=== PATIENT | female | born 1980 | race Caucasian/White ===

== ENCOUNTER 2024-04-14 13:56 | Inpatient (IN) ==
[2024-04-14 15:08] LABS: BASOPHILS # (AUTO) 0.1 10^3/uL (0.0-0.1); BASOPHILS % (AUTO) 0.5 %; EOSINOPHILS # (AUTO) 0.2 10^3/uL (0.0-0.7); EOSINOPHILS % (AUTO) 1.1 %; HCT - HEMATOCRIT 43.7 % (37.0-47.0); HGB - HEMOGLOBIN 14.5 g/dL (12.0-16.0); LYMPHOCYTES # (AUTO) 2.1 10^3/uL (1.5-3.5); LYMPHOCYTES % (AUTO) 16.1 %; MEAN CORPUSCULAR HEMOGLOBIN 30.1 pg (27.0-31.0); MEAN CORPUSCULAR HGB CONC 33.2 g/dL (32.0-36.0); MEAN CORPUSCULAR VOLUME 90.9 fL (81.0-99.0); MONOCYTES # (AUTO) 0.7 10^3/uL (0.0-1.0); MONOCYTES % (AUTO) 5.5 %; NEUTROPHILS # (AUTO) 10.1 10^3/uL (1.5-6.6); NEUTROPHILS % (AUTO) 76.4 %; PLT - PLATELET COUNT 366 10^3/uL (130-450); RED BLOOD COUNT 4.81 10^6/uL (4.20-5.40); RED CELL DISTRIBUTION WIDTH 12.8 % (12.0-15.0); WHITE BLOOD COUNT 13.2 x10^3/uL (4.8-10.8)
[2024-04-14 15:13] LABS: BILIRUBIN,URINE MODERATE (NEGATIVE); CLARITY,URINE HAZY (CLEAR); GLUCOSE, URINE (UA) NEGATIVE (NEGATIVE); KETONES,URINE (UA) 15 mg/dL (NEGATIVE); LEUKOCYTE ESTERASE, URINE TRACE (NEGATIVE); NITRITE,URINE NEGATIVE (NEGATIVE); OCCULT BLOOD,URINE TRACE-INTA (NEGATIVE); PROTEIN,URINE TRACE mg/dL (NEGATIVE); UROBILINOGEN,URINE 4 E.U./dL (NORMAL)
[2024-04-14 15:29] LABS: RBC,URINE 0-5 /HPF (0-5); SQUAMOUS EPITHELIAL CELL,UR MOD Squamous (<= Few)
[2024-04-14 15:30] LABS: BACTERIA,URINE Rare /HPF (None Seen); MUCUS,URINE Moderate Strands
[2024-04-14 15:35] LABS: ALBUMIN 4.4 g/dL (3.2-5.5); ALBUMIN/GLOBULIN RATIO 1.1 (1.0-2.2); BILIRUBIN,TOTAL 0.7 mg/dL (0.2-1.0); CALCIUM 9.7 mg/dL (8.5-10.3); CREATININE 0.8 mg/dL (0.6-1.3); POTASSIUM 3.6 mmol/L (3.5-4.5); TOTAL PROTEIN 8.4 g/dL (6.4-8.9)
--- NOTE | 2024-04-14 16:23 | ED Physician Documentation ---
PD HPI ABD PAIN Stated complaint Stated Complaint: ABD PX, NAUSEA, LETHARGIC Chief complaint Chief Complaint: Abd Pain Additional information Additional information: 43-year-old female history of tubal ligation and cholecystectomy presents emergency department for generalized abdominal pain. She says there is no pain localized to 1 area she has been having chills nausea no vomiting. This been ongoing now for the last 3 to 4 days originally she was worried about possible constipation but she called her friend who is an RN who informed her that she needs to go the emergency department for further evaluation. Last bowel movement was on Friday she took Pepto-Bismol with little to no relief. She says that she has a very low suspicion for as her has a vasectomy and she has a tubal ligation. Meds/Allgy Allergies Allergies Allergy/AdvReac Type Severity Reaction Status Date / Time acetaminophen (From Vicodin) Allergy Intermediate Nausea Verified 04/14/24 14:45 hydrocodone (From Vicodin) Allergy Intermediate Nausea Verified 04/14/24 14:45 latex Allergy Mild Rash Verified 04/14/24 14:45 [facility] Medical History Medical History (Updated 04/14/24 @ 18:34 by Tray Echavarria MD) Hiatal hernia Gall bladder pain Social History Social History Smoking Status: Unknown if ever smoked Relationship: Do you feel safe in your home environment?: Yes Suffered physical, verbal, emotional, or financial abuse?: No POLST Patient has POLST: No Exam Exam Vital Signs Temperature 35.9 C L 04/14/24 18:51 Pulse Rate 86 04/14/24 18:51 Respiratory Rate 15 04/14/24 18:51 Blood Pressure 129/83 04/14/24 18:51 O2 Saturation 98 04/14/24 18:51 Constitutional normal general appearance, no apparent distress and abnormal body habitus (obese) HENMT normocephalic Eyes PERRL Neck/C-Spine visual inspection normal Lymph no lymphadenopathy noted Chest inspection of chest normal Respiratory breath sounds equal bilaterally Cardiovascular normal heart rate noted Gastrointestinal abdomen normal to inspection, abdomen soft to palpation, tender to palpation (moderate) (generalized adomial tenderness), normoactive bowel sounds and no ascites Genitourinary no CVA tenderness Skin skin color normal and no rash Results Vitals Vitals: Vital Signs - 24 hr 04/14/24 14:14 04/14/24 16:15 04/14/24 16:29 Temperature 36.6 C Temperature Source Temporal Artery Scan Pulse Rate 105 H 91 H Respiratory Rate 18 16 Blood Pressure 151/88 H 160/95 H O2 Saturation 99 97 O2 Source Room air Room air Pain Intensity 10 9 9 04/14/24 18:51 Temperature 35.9 C L Temperature Source Temporal Artery Scan Pulse Rate 86 Respiratory Rate 15 Blood Pressure 129/83 O2 Saturation 98 O2 Source Room air Pain Intensity 7 Oxygen O2 Source Room air Labs Labs: Laboratory Tests 04/14/24 04/14/24 14:30 15:00 WBC 13.2 H RBC 4.81 Hgb 14.5 Hct 43.7 MCV 90.9 MCH 30.1 MCHC 33.2 RDW 12.8 Plt Count 366 MPV 10.0 Neut # (Auto) 10.1 H Lymph # (Auto) 2.1 [place] # (Auto) 0.7 Eos # (Auto) 0.2 Baso # (Auto) 0.1 Absolute Nucleated RBC 0.00 Nucleated RBC % 0.0 Sodium 137 Potassium 3.6 Chloride 99 L Carbon Dioxide 29 Anion Gap 9.0 BUN 10 Creatinine 0.8 Estimated GFR (MDRD) 79 L Glucose 142 H Calcium 9.7 Total Bilirubin 0.7 AST 16 ALT 15 Alkaline Phosphatase 104 Total Protein 8.4 Albumin 4.4 Globulin 4.0 Albumin/Globulin Ratio 1.1 Lipase 13 Serum HCG, Qual NEGATIVE Urine Color DARK YELLOW Urine Clarity HAZY Urine pH 6.0 Ur Specific [place] 1.025 Urine Protein TRACE Urine Glucose (UA) NEGATIVE Urine Ketones 15 H Urine Occult Blood TRACE-INTA Urine Nitrite NEGATIVE Urine Bilirubin MODERATE H Urine Urobilinogen 4 H Ur Leukocyte Esterase TRACE H Urine RBC 0-5 Urine WBC 6-10 H Ur Squamous Epith Cells MOD Squamous H Urine Bacteria Rare Urine Mucus Moderate Strands Ur Microscopic Review INDICATED Urine Culture Comments NOT INDICATED Urine HCG, Qual NEGATIVE Rads (name of study) CT abdomen pelvis with: Relevant Findings:: Final report received PD Medical Decision Making ED course ED course: 43-year-old female presents emergency department for generalized abdominal pain and discomfort. She says this has been ongoing now for the last 3 to 4 days feels very fatigue and low energy with chills. Labs are complete for further evaluation and she does have mildly elevated white count 13.2 no anemia no electrolyte abnormalities negative hCG. Urinalysis has trace amount of leukocytes but she has no UTI symptoms so I will not treat this. CT was complete for further evaluation and radiologist called me to inform me that patient appears to have an acute appendicitis with a 3.5 cm abscess and appendix dilated at 10 mm. Given these findings I am significantly less suspicious for possible ovarian torsion or PID, radiologist also notes this. I informed Dr. Echavarria with [facility] who has agreed to accept the patient to his care he will perform surgery tonight patient was started on Zosyn prior to surgery. Pain is well-controlled with fentanyl and nausea controlled with Zofran. Patient was updated of the findings and is agreeable to pursue surgery at this time. Discharge Plan Discharge Patient Disposition: ED Transfer to [facility] Interventions: ED Admission Assessment Last Done: 04/14/24 19:20
[2024-04-14] MEDS: ONDANSETRON 4 MG/2 ML VIAL IVP STA (16:29)
[2024-04-14] MEDS: KETOROLAC 30 MG/ML VIAL IVP STA (16:29)
[2024-04-14] MEDS ORDERED: iohexoL-300 100 ML VIAL ONE (16:42)
[2024-04-14] MEDS: iohexoL-300 100 ML VIAL IVP ONE (17:12)
--- NOTE | 2024-04-14 17:33 | CT Report ---
PROCEDURE: CT Abdomen/Pelvis W INDICATIONS: generalized abd pain CONTRAST: 100ML [id number] TECHNIQUE: After the administration of intravenous contrast, a CT scan of the abdomen and pelvis was performed. Images were recorded and evaluated at appropriate window settings. Reformats: coronal and sagittal. F or radiation dose reduction, the following was used: automated exposure control, adjustment of mA and /or kV according to patient size. COMPARISON: None. FINDINGS: Image quality: Diagnostic. Lower chest: Unremarkable. Liver: No solid mass. Gallbladder: Status post cholecystectomy. Biliary tree: No intrahepatic or extrahepatic dilation, accounting for age. Spleen: No splenomegaly. Pancreas: No pancreatic ductal dilation. Adrenals: No adrenal nodule. Kidneys and ureters: No hydronephrosis. No renal cystic lesion which requires follow up. No solid mas s. Stomach, bowel and peritoneum: No gastric or small bowel dilation. No abnormal wall thickening. No pa thologic free fluid. Inflammatory changes are seen in the right lower quadrant adjacent to the cecal tip extending to the right adnexa. Dilated appendix is best seen on coronal view and measures up to 1 0 mm in diameter. No appendicolith is seen. Lymph nodes: No central or retroperitoneal adenopathy. Vessels: No infrarenal aortic aneurysm. Patent portal vein. PELVIS Reproductive organs: 3.5 cm right ovarian cyst adjacent to the area of right lower quadrant inflammat ion. Left ovary is unremarkable. A clip is seen in the left adnexa. There is also a nonspecific surgi mikayla clip within the left lower quadrant. Bladder: No abnormal wall thickening, accounting for underdistention. Pelvic lymph nodes: No pelvic adenopathy by size criteria. Bones: No aggressive osseous abnormality. Other: No significant ventral or inguinal hernia. IMPRESSION: Findings suspicious for acute appendicitis with periappendiceal fat stranding and dilated appendix me asuring up to 10 mm. No appendicolith is seen. Inflammatory changes extend to the right adnexal regio n where there is a 3.5 cm right ovarian cyst. Ovarian torsion or pelvic inflammatory disease are felt to be less likely given the appearance of the appendix. Findings were discussed with the referring provider, Mary Donovan NP by telephone on 04/14/2024 at 5: 30 PM. Reviewed by: Eduard Chappell MD on 04/14/2024 5:32 PM PDT Approved by: Eduard Chappell MD on 04/14/2024 5:32 PM PDT Station ID: [id number]
[2024-04-14 18:08] LABS: HCG,QUALITATIVE BLOOD NEGATIVE
[2024-04-14] MEDS: PIPERACILLIN/TAZOBACTAM 3.375 GM in SODIUM CHLORIDE 0.9% MINIBAG 100 ML IV STA (18:08)
--- NOTE | 2024-04-14 18:19 | ANESTHESIA PROCEDURE NOTE ---
Pre-Anesthesia VS, & Labs Diagnosis Surgical Diagnosis:: acute appendicitis Procedure Procedure: laparoscopic appendectomy Vitals Vital Signs: Temp Pulse Resp BP Pulse Ox 36.6 C 91 H 16 160/95 H 97 04/14/24 14:14 04/14/24 16:15 04/14/24 16:15 04/14/24 16:15 04/14/24 16:15 Is Patient ?: No Lab Results Current Lab Results: Laboratory Tests 04/14/24 15:00: WBC 13.2 H, RBC 4.81, Hgb 14.5, Hct 43.7, MCV 90.9, MCH 30.1, MCHC 33.2, RDW 12.8, Plt Count 366, MPV 10.0, Neut # (Auto) 10.1 H, Lymph # (Auto) 2.1, [place] # (Auto) 0.7, Eos # (Auto) 0.2, Baso # (Auto) 0.1, Absolute Nucleated RBC 0.00, Nucleated RBC % 0.0, Sodium 137, Potassium 3.6, Chloride 99 L, Carbon Dioxide 29, Anion Gap 9.0, BUN 10, Creatinine 0.8, Estimated GFR (MDRD) 79 L, Glucose 142 H, Calcium 9.7, Total Bilirubin 0.7, AST 16, ALT 15, Alkaline Phosphatase 104, Total Protein 8.4, Albumin 4.4, Globulin 4.0, Albumin/Globulin Ratio 1.1, Lipase 13, Serum HCG, Qual NEGATIVE 04/14/24 15:00 04/14/24 15:00 Meds/Allgy Allergies Allergies Allergy/AdvReac Type Severity Reaction Status Date / Time acetaminophen (From Vicodin) Allergy Intermediate Nausea Verified 04/14/24 14:45 hydrocodone (From Vicodin) Allergy Intermediate Nausea Verified 04/14/24 14:45 latex Allergy Mild Rash Verified 04/14/24 14:45 [facility] Medical History Medical History (Updated 04/14/24 @ 14:24 by Celina Lu RN) Hiatal hernia Gall bladder pain Social History Social History Relationship: Do you feel safe in your home environment?: Yes Suffered physical, verbal, emotional, or financial abuse?: No POLST Patient has POLST: No Anesthesia Exam (Expanded) Exam General: Alert and Oriented x3 Dental: WNL Mouth Opening: Greater than 4 Fingerbreadths Neck Mobility: Normal Mallampati classification: I Thyromental Distance: greater than 6 cm Respiratory: Lungs clear Cardiovascular: Regular rate Exam Exam Vital Signs Temperature 36.6 C 04/14/24 14:14 Pulse Rate 91 H 04/14/24 16:15 Respiratory Rate 16 04/14/24 16:15 Blood Pressure 160/95 H 04/14/24 16:15 O2 Saturation 97 04/14/24 16:15 Plan Plan Anesthesia Type: General Consent for Procedure(s) Verified and Reviewed: Yes Code Status: Attempt Resuscitation ASA Classification ASA classification: 2-Mild systemic disease Is this case an emergency?: Yes
[2024-04-14] MEDS ORDERED: DEXAMETHASONE 4 MG/ML VIAL ONE (18:34)
[2024-04-14] MEDS ORDERED: PROPOFOL 200 MG/20 ML VIAL IVP ONE (18:34)
[2024-04-14] MEDS ORDERED: ROCURONIUM 50 MG/5 ML VIAL ONE (18:34)
--- NOTE | 2024-04-14 18:36 | CONSULTATION NOTE ---
Referring Provider Name of Referring Provider:: Fannie Donovan Consult Date: 04/14/24 Chief Complaint Chief Complaint Chief Complaint: Right lower quadrant pain History of Present Illness Admitted From Admitted From:: Not admitted-outpatient History Obtained From Records Reviewed: Yes History obtained from: Patient and chart Exam Limitations: None History of Present Illness HPI Comment/Other: Patient has had a 4-day history of abdominal pain which was generalized initially with a slight preponderance to the right lower quadrant. She had a mild improvement of the pain today and then when it worsened she agreed to come to the emergency department. Her mother told her that she thought it might be appendicitis as her mother had had appendicitis in the past. The patient is not hungry. Motion makes the pain worse. She is also having some irritation whenever she urinates. She has had multiple abdominal surgeries including cholecystectomy, tubal ligation, and I believe an ovarian cystectomy. The patient states that when she was examined on admission palpation of the right lower quadrant was the most painful spot. Meds/Allgy Allergies Allergies Allergy/AdvReac Type Severity Reaction Status Date / Time acetaminophen (From Vicodin) Allergy Intermediate Nausea Verified 04/14/24 14:45 hydrocodone (From Vicodin) Allergy Intermediate Nausea Verified 04/14/24 14:45 latex Allergy Mild Rash Verified 04/14/24 14:45 PFSH Medical History Medical History (Updated 04/14/24 @ 18:34 by Tray Echavarria MD) Hiatal hernia Gall bladder pain Social History Social History Relationship: Do you feel safe in your home environment?: Yes Suffered physical, verbal, emotional, or financial abuse?: No POLST Patient has POLST: No POLST Status: Full Code Results Lab Results Lab results reviewed: Yes 04/14/24 15:00 04/14/24 15:00 Other Lab Results: Lab Results x24hrs 04/14/24 04/14/24 Range/Units 15:00 14:30 WBC 13.2 H (4.8-10.8) x10^3/uL RBC 4.81 (4.20-5.40) 10^6/uL Hgb 14.5 (12.0-16.0) g/dL Hct 43.7 (37.0-47.0) % MCV 90.9 (81.0-99.0) fL MCH 30.1 (27.0-31.0) pg MCHC 33.2 (32.0-36.0) g/dL RDW 12.8 (12.0-15.0) % Plt Count 366 (130-450) 10^3/uL MPV 10.0 (7.9-10.8) fL Neut # (Auto) 10.1 H (1.5-6.6) 10^3/uL Lymph # (Auto) 2.1 (1.5-3.5) 10^3/uL [place] # (Auto) 0.7 (0.0-1.0) 10^3/uL Eos # (Auto) 0.2 (0.0-0.7) 10^3/uL Baso # (Auto) 0.1 (0.0-0.1) 10^3/uL Absolute Nucleated RBC 0.00 x10^3/uL Nucleated RBC % 0.0 /100WBC Sodium 137 (135-145) mmol/L Potassium 3.6 (3.5-4.5) mmol/L Chloride 99 L (101-111) mmol/L Carbon Dioxide 29 (21-32) mmol/L Anion Gap 9.0 (6-13) BUN 10 (6-20) mg/dL Creatinine 0.8 (0.6-1.3) mg/dL Estimated GFR (MDRD) 79 L (>89) Glucose 142 H (74-104) mg/dL Calcium 9.7 (8.5-10.3) mg/dL Total Bilirubin 0.7 (0.2-1.0) mg/dL AST 16 (10-42) IU/L ALT 15 (10-60) IU/L Alkaline Phosphatase 104 (42-121) IU/L Total Protein 8.4 (6.4-8.9) g/dL Albumin 4.4 (3.2-5.5) g/dL Globulin 4.0 (2.1-4.2) g/dL Albumin/Globulin Ratio 1.1 (1.0-2.2) Lipase 13 (11-82) U/L Serum HCG, Qual NEGATIVE Urine Color DARK YELLOW Urine Clarity HAZY (CLEAR) Urine pH 6.0 (5.0-7.5) PH Ur Specific [place] 1.025 (1.002-1.030) Urine Protein TRACE (NEGATIVE) mg/dL Urine Glucose (UA) NEGATIVE (NEGATIVE) mg/dL Urine Ketones 15 H (NEGATIVE) mg/dL Urine Occult Blood TRACE-INTA (NEGATIVE) Urine Nitrite NEGATIVE (NEGATIVE) Urine Bilirubin MODERATE H (NEGATIVE) Urine Urobilinogen 4 H (NORMAL) E.U./dL Ur Leukocyte Esterase TRACE H (NEGATIVE) Urine RBC 0-5 (0-5) /HPF Urine WBC 6-10 H (0-5) /HPF Ur Squamous Epith Cells MOD Squamous H (<= Few) Urine Bacteria Rare (None Seen) /HPF Urine Mucus Moderate Strands Ur Microscopic Review INDICATED Urine Culture Comments NOT INDICATED Diagnostic Imaging Results Diagnostic Imaging Results: positive Final report reviewed, See rad report and Read contemporaneously Review of Systems Status of ROS: 10 or more systems reviewed and unremarkable except as noted in history and below Exam Exam Vital Signs Temperature 36.6 C 04/14/24 14:14 Pulse Rate 91 H 04/14/24 16:15 Respiratory Rate 16 04/14/24 16:15 Blood Pressure 160/95 H 04/14/24 16:15 O2 Saturation 97 04/14/24 16:15 Constitutional normal general appearance HENMT normocephalic, head/scalp atraumatic, hearing grossly normal bilaterally, external ears normal and oral mucous membranes abnormal (Slightly dry) Eyes conjunctivae normal and no scleral icterus Neck/C-Spine trachea midline Respiratory breath sounds equal bilaterally, normal respiratory effort, clear to auscultation bilaterally, no wheezes, no rales, no retractions and no use of accessory muscles Cardiovascular normal heart rate noted (Slightly tachycardic) Gastrointestinal nondistended, abnormal bowel sounds noted (Decreased) and no masses Maximal tenderness at McBurney's point. Extremities normal to inspection, normal to palpation and no tenderness Neurology no movement abnormality noted, no sensory deficits noted and GCS normal Skin skin color normal, no rash, no lesions, no ecchymosis noted, no wounds, no lacerations, skin turgor normal, no jaundice, no petechiae, no mottling and nails normal Conclusion/Plan Problem List (1) Acute appendicitis: Plan Assessment: Acute appendicitis. The laboratory values, history, radiographic findings, and examination all point towards acute appendicitis. Plan: Laparoscopic appendectomy, possible open appendectomy. The indications, procedure, alternatives including no surgery, possible risks including infection (deep or superficial), bleeding requiring transfusion (with all of its risks), and were fully explained to the patient and her and all questions answered. I also explained the pathophysiology. I explained that following the surgery I did not want her lifting anything over 15 pounds for 6 weeks to allow for optimal healing and to decrease the likelihood that a hernia would occur. All questions were fully answered. Verbal and written consent was obtained. The patient, in preparation for surgery will be nothing by mouth, and has already received 3.375 g of Zosyn. I asked her to contact me with any surgical questions and her concerns and she stated that she would. I asked her to let me know if there is any way we can make her stay at [facility] more comfortable and she stated that she would let me know. The plan is to do this operation as an outpatient procedure and to discharge her home following the procedure. Important note is that her mother is due to have a mastectomy performed by Dr. 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 I explained that this operation would likely preclude her from being the compactor driver. 45 minutes of [id number] time spent with the patient, over 80% in discussion and coordination of her care Lab Results Lab results reviewed: Yes 04/14/24 15:00 04/14/24 15:00 Diagnostic Imaging Results Diagnostic Imaging Results: positive Final report reviewed, See rad report and Read contemporaneously
[2024-04-14] MEDS ORDERED: fentaNYL 100 MCG/2 ML VIAL ONE ×2 (18:37→19:59)
[2024-04-14] MEDS ORDERED: LIDOCAINE-PF 2% 10 ML AMP SUBQ ONE (18:39)
[2024-04-14 18:59] LABS: HCG UR QUAL NEGATIVE
[2024-04-14] MEDS ORDERED: ACETAMINOPHEN 1,000 MG/100 ML 1,000 MG/100 ML BAG IV ONE (19:35)
[2024-04-14] MEDS ORDERED: HYDROmorphone 1 MG/ML CARPUJECT ONE (21:33)
[2024-04-14] MEDS ORDERED: SUGAMMADEX 200 MG/2 ML VIAL IVP ONE (21:40)
[2024-04-14] MEDS: BUPIVACAINE 0.5%-EPI 1:200000 PF 10 ML VIAL ONE (21:40)
--- NOTE | 2024-04-14 21:47 | OPERATIVE REPORT ---
Operative Report General Procedure Data: Operation Date: 04/14/24 19:00 Proposed Procedures p Laparoscopic Appendectomy(Not Applicable) - Tray Echavarria MD Actual Procedures p Laparoscopic Appendectomy(Not Applicable) - Tray Echavarria MD s Laparoscopic Ovarian Cystectomy(Right) - Gasper Bhatia MD Pre-Op Diagnosis: ACUTE APPENDICITIS Anesthesia Type General Case Staff Anesthesia Provider: Paulette Mckeon Assisting Provider: Gasper Bhatia Case Times Procedure Start: 04/14/24 19:58 Time out: 04/14/24 19:57 Tourniquet Tourniquet #: Tourniquet Site Padding: Pressure: Applied by: Time up #1: Time Down #1: Time Up #2: Time Down #2: Pre-Op Diagnosis: Right ovarian cyst Post Op Diagnosis: Status post laparoscopic right ovarian cystectomy Procedure Note Pathology: Right ovarian cyst Findings: Approximately 6 to 7 cm simple appearing right ovarian cyst Complications: None Other Other Information/Narrative: Patient was undergoing operation for an appendectomy for acute appendicitis, and during the procedure, she had a right-sided ovarian cyst, and I was called intraoperatively for assessment. Upon examination, she had under the area of inflamed appendix which had been dissected away. She had undergone a previous tubal ligation via mid-segment salpingectomy. The remainder of the tube was intact, but irritated from dissection from the appendix. Upon examination of the ovary, she had a 6 to 7 cm simple appearing ovarian cyst, and while likely her pain was related to her acute appendicitis, she did have a large cyst, and was at risk of torsion, and as she was undergoing surgery, decision was made to proceed with cystectomy. The tube was elevated and examined to find a plane between the cyst and the ovary. A small incision the serosa was made with laparoscopic Metzenbaum scissors. The cyst was then grasped with a blunt grasper, but during manipulation, it immediately ruptured and straw-colored fluid was removed. Using a suction jewellery designer, the fluid was removed and the area was rinsed. The incision was then opened further and I attempted to remove the cyst wall from the serosa, but shaggy, small fragments were removed, and the cyst was not easily dissected. At that point I transected the cyst wall with the serosa with the LigaSure device and this was removed from the abdomen and sent to pathology. Hemostasis was noted. I then elevated the uterus and examined the contralateral ovary which were normal appearing, although there were some adhesions and with patient positioning, elevating out of the pelvis was difficult. After sample was sent to pathology, I returned the surgery to Dr. Echavarria who completed the procedure. There was minimal blood loss during the procedure.
[2024-04-14] MEDS ORDERED: SODIUM CHLORIDE FLUSH 0.9% 10 ML SYRINGE IVP PRN (21:56)
[2024-04-14] MEDS ORDERED: ONDANSETRON 4 MG/2 ML VIAL ONE (22:14)
[2024-04-14] MEDS: ONDANSETRON 4 MG/2 ML VIAL IVP PRN (22:15)
--- NOTE | 2024-04-14 22:20 | OPERATIVE REPORT ---
Operative Report General Procedure Data: Operation Date: 04/14/24 19:00 Proposed Procedures p Laparoscopic Appendectomy(Not Applicable) - Tray Echavarria MD Actual Procedures p Laparoscopic Appendectomy(Not Applicable) - Tray Echavarria MD s Laparoscopic Ovarian Cystectomy(Right) - Gasper Bhatia MD Pre-Op Diagnosis: ACUTE APPENDICITIS Anesthesia Type General Case Staff Anesthesia Provider: Paulette Mckeon Assisting Provider: Gasper Bhatia Case Times Procedure Start: 04/14/24 19:58 Procedure End: 04/14/24 21:45 Time out: 04/14/24 19:57 Tourniquet Tourniquet #: Tourniquet Site Padding: Pressure: Applied by: Time up #1: Time Down #1: Time Up #2: Time Down #2: Other Other Information/Narrative: [address] [address] Patient Name: Bev Kerr Patient birthdate: 1980 Patent MR number: [id number] Date of procedure: 04/14/2024 Preoperative Diagnosis/Indications: Acute appendicitis Postoperative Diagnosis: Acute perforated appendicitis and right ovarian cyst Procedure: Laparoscopic appendectomy with placement of drain CPT 23410, Intra- operative consultation to Dr. Gasper Bhatia Fluids: 900 mL EBL: 10 mL Urine output: 100 mL Drains: 19 Palestinian David drain placed in the inferior incision and guided along the right gutter Findings: Perforated appendix with pus, large right ovarian cyst Complications: None Surgeon/Dictated by: Tray Echavarria MD (please note there were 2 surgeons hereI [address] Dr. Gasper Bhatia intraoperatively for the large ovarian cyst and this surgery for the large ovarian cyst was performed by Dr. Gasper Bhatia. He should not be listed as an assisting provider he was the primary provider for the right ovarian cystectomy) Quahogger: N/A Hookman: Paulette Mckeon CRNA Anesthesia type: General Endotracheal +20 mL of half percent Marcaine with epinephrine Procedure: After verbal and written informed consent was obtained detailing the operation, the alternatives the operation including no operation, risks of infection, bleeding requiring transfusion with its risks, nerve injury, and and after I met with the patient confirming the surgery and the site of surgery, the patient was brought to the operative suite and placed supine on the operating table. Great care was taken to avoid pressure points to prevent pressure necrosis or nerve injury. Monitoring devices were applied along with TEDs and pneumatic compression stockings (to prevent DVT). An intravenous line was started and anesthesia was maintained throughout the case. The patient was monitored for cardiac, blood pressure, and oxygen saturation continuously. The patient received preoperative antibiotics for surgical prophylaxis. [Hookman] sedated and anesthetized the patient for the entire procedure. The patient was prepped and draped in the usual sterile manner. With the patient draped my initials were clearly visible. A "time in" then confirmed that the patient was identified with 3 identifiers (name, date, and medical record number), the history and physical was updated and in the chart, the signed consent confirming the procedure was in the chart, the patient was in the correct position, the aforementioned prophylactic measures were in place or given, we had the correct personnel and equipment to complete the procedure and that anesthesia and the surgical team were given an opportunity to express any concerns. With the agreement of everyone in the room we proceeded with the operation. The initial incision was at the umbilicus and dissection to the linea alba was completed using blunt dissection. The linea alba was grasped with a Yogi and incised. In a similar manner the peritoneum was grasped and incised using Metzenbaum scissors. In this location, a 12 mm blunt tipped, balloon tipped port was placed and the balloon was inflated to keep the port in position. The abdominal cavity was insufflated with carbon dioxide to a steady-state pressure of 15 mmHg. 2 additional 5 mm ports were placed in standard locations for laparoscopic appendectomy (above and below the umbilicus at the midline) under direct vision of the 30 degree laparoscope and without incident. The patient was then placed in Trendelenburg position and was rotated slightly to their left. Examination of the right lower quadrant revealed a thickened and clearly infected/inflamed appendix with fibrinous exudate and as it was rotated medially white thick pus was noted to be coming from the mesentery. Photographs were taken of this. This was also in close proximity to be clearly inflamed right fallopian tube with fimbria as well as a enlarged right ovarian cyst. At this point in time I called Dr. Gasper Bhatia to the operating room and he was kind enough to come on in and opine on this ovarian cyst as well as volunteered to remove it. The appendix was markedly thickened and folded back onto itself. The mesentery was slowly freed using serial application of the Lige sure until I was able to get to the base of the appendix which was normal. Once the base of the appendix was encountered the appendix was transected using a laparoscopic JIMENEZ stapler with a GI load that had been placed through the umbilical port and the camera was switched to a 5 mm camera and placed through one of the 5 mm ports. Examination of the staple line noted to be intact without leak or bleeding. An Endopouch was placed through the umbilical port and the appendix was placed into the Endopouch and the Endopouch was secured. The left right lower quadrant was then copiously irrigated using 1 L of warm sterile saline. The Endopouch with the enclosed appendix was then removed from the abdomen and the 12 mm blunt tipped balloontipped port was replaced to allow Dr. Gasper Bhatia to perform his portion of the operation. At this point I turned the case over to Dr. Gasper Bhatia for the right ovarian cystectomy and a separate this document was created in part using voice recognition technology. Because of the inherent limitations of the system, occasional same sounding word substitutions and grammatical errors do occur and persist despite proofreading. Please read this document for context. I am certain has been performed by him. Once he was done I returned to the operating room table and continued my portion of the operation. Due to the purulence I placed a 19 Palestinian David drain through the inferior incision into the abdomen under direct vision without incident. This was secured to the skin using a 3-0 nylon which was Jesus sandaled about the drain. I irrigated the abdominal cavity with the remaining 1 L of warm sterile saline. I injected the port sites at the peritoneal, fascial, and skin levels under direct vision with 0.5% Marcaine with epinephrine. The 2 remaining ports were removed. The remaining carbon dioxide was expelled from the abdomen. The fascia the umbilicus was approximated using 2 [id number] 0 Vicryl sutures. The skin at each port site was approximated using a subcuticular 4-0 Monocryl. The skin was cleaned of its prep and Dermabond was applied. At this point a "timeout" was performed that confirmed that all counts were correct, the procedure that was performed, the blood loss, the IV fluids administered, the patient's condition and any concerns of the operating team had. Having tolerated the procedure well, the patient was extubated and taken to PACU in good and stable condition. The plan is for inpatient admission for drainage of the abdominal cavity and continued IV antibiotics due to the purulence that was encountered during the operation. Today's documentation has been created with the assistance of voice recognition software. Therefore, it may contain anomalous punctuation, anomalous independent mis-recognitions, word substitutions, insertions or omissions. Occasional wrong-word or phonetically similar substitutions may also occur all due to the inherent limitations of voice recognition software. I have attempted to correct the above but I recommend that the chart be read carefully to recognize, using context, where the substitutions, insertions or omissions may have occurred.
[2024-04-14] MEDS: DEXTROSE 5%-0.9% NACL 1,000 ML IV SCH (23:08)
--- NOTE | 2024-04-14 23:31 | ANESTHESIA POST OP EVALUATION ---
Anesthesia Post Eval Post Anesthesia Eval Vitals: Last Vital Signs Temp 36.7 C 04/14/24 23:08 Pulse 89 04/14/24 23:08 Resp 16 04/14/24 23:08 BP 144/91 H 04/14/24 23:08 Pulse Ox 95 04/14/24 23:08 O2 Flow Rate 2.5 04/14/24 23:08 CV Function Including HR & BP: Stable Pain Control: Satisfactory Nausea & Vomiting: Negative Mental Status: Baseline Respiratory Status: Airway Patent Hydration Status: Satisfactory Anesthesia Complications: None
[2024-04-14] MEDS: PIPERACILLIN/TAZOBACTAM 3.375 GM in SODIUM CHLORIDE 0.9% MINIBAG 100 ML IV SCH (23:38)
[2024-04-15] MEDS: SODIUM CHLORIDE FLUSH 0.9% 10 ML SYRINGE IVP SCH (00:17)
[2024-04-15] MEDS: oxyCODONE 5 MG TABLET PO PRN (00:58)
[2024-04-15] MEDS: ONDANSETRON ODT 4 MG TABLET TL PRN (01:47)
[2024-04-15] MEDS: BUPIVACAINE 0.5%-EPI 1:200000 PF 10 ML VIAL ONE (07:30)
[2024-04-15] MEDS: HYDROmorphone 0.5 MG/0.5 ML SYRINGE IVP PRN (07:58)
--- NOTE | 2024-04-15 11:39 | PHARMACY PROGRESS NOTE ---
Best Possible Medication History Admit Date and Time: 04/14/242156 Processed by: Pharmacy Medications reviewed in ED?: No Medication History completed: Yes Patient Interview: Completed [facility] Statement: As the person ultimately responsible for medication therapy, providers are able to order a medication from an existing home medication list in [facility] via the "Reconcile Routine" prior to Confirmation of that medication by network support engineer. Such practice is discouraged except when the physician, in their clinical judgment, deems that a medical need exists for a medication without regard to previous use.
--- NOTE | 2024-04-15 13:19 | PROVIDER PROGRESS NOTE ---
Subjective General Admit Date: 04/14/24 Procedure Date: 04/14/24 Post Op Days: 1 Procedure Performed: Laparoscopic appendectomy, laparoscopic ovarian cystectomy, placement of dr Wound Assessment Wound/Incisions: positive Healing well and Drainage (Drain output is serosanguineous); negative Erythema Drain Type: 19 Icelandic David Drain Output Description: Serosanguineous Approximate mls Output: 50 mL Review of Systems Status of ROS: 10 or more systems reviewed and unremarkable except as noted in history and below Exam Exam Vital Signs Temperature 36.4 C L 04/15/24 11:29 Pulse Rate 81 04/15/24 11:29 Respiratory Rate 18 04/15/24 11:29 Blood Pressure 119/78 04/15/24 11:29 O2 Saturation 98 04/15/24 11:29 If not protocol: Oxygen Flow, liters/minute 2.5 04/15/24 01:20 Constitutional normal general appearance and no apparent distress (Markedly improved from yesterday) HENMT normocephalic, head/scalp atraumatic, hearing grossly normal bilaterally, external ears normal and oral mucous membranes abnormal (Slightly dry) Eyes conjunctivae normal and no scleral icterus Neck/C-Spine trachea midline Respiratory breath sounds equal bilaterally, normal respiratory effort, clear to auscultation bilaterally, no wheezes, no rales, no retractions and no use of accessory muscles Cardiovascular normal heart rate noted (Slightly tachycardic) Gastrointestinal tender to palpation, nondistended, normoactive bowel sounds and no masses Incisional tenderness Extremities normal to inspection, normal to palpation and no tenderness Neurology no movement abnormality noted, no focal motor deficit noted, no sensory deficits noted and GCS normal Patient got up out of bed and walked to the bathroom without difficulty. Skin skin color normal, no rash, no lesions, no ecchymosis noted, no wounds, no lacerations, skin turgor normal, no jaundice, no petechiae, no mottling and nails normal ABX Reporting Has patient been on IV antibiotics over the past 48 hours?: Yes Impression/Plan Problem List (1) Acute appendicitis: Qualifiers: Appendicitis perforation presence: with perforation Appendicitis abscess presence: with abscess Plan Assessment: Postop day #1 status post laparoscopic appendectomy, laparoscopic right ovarian cystectomy and placement of drain for ruptured purulent appendicitis. Plan: 1) FEN General Diet TKO IV to continue IV antibiotics due to ruptured nature of appendix with spillage of pus 2) ID Continue Zosyn for total of 4 doses following the surgery. I will check the patient's white blood cell count tomorrow morning and if it is markedly improved I will send her home without oral antibiotics. On the other hand if the white blood cell count is still elevated I will send her home on levofloxacin as well as Flagyl. This was discussed with the patient and her who vocalized an understanding. 3) Activity Increase is much as possible today. Okay for patient to have a shower. The reason for the patient's admission and continued hospitalization is IV antibiotics for ruptured grossly purulent appendicitis. A course of IV antibiotics is indicated.
--- NOTE | 2024-04-15 13:19 | PROVIDER PROGRESS NOTE ---
Subjective Subjective Subjective: Patient doing well this morning. Good mood, laughing, watching television. No significant pain. No change in hot flashes as she has been having these for some time. Irregular menses. Current Medications Current Medications Current Medications: Current Medications Generic Name Dose Route Start Last Admin Trade Name Freq PRN Reason Stop Dose Admin Hydromorphone HCl 0.5 mg 04/14/24 22:02 04/15/24 07:58 Hydromorphone 0.5 Mg/0.5 Ml Syringe IVP 0.5 mg Q2H PRN Administration Pain 8 to 10 Dextrose/Sodium Chloride 1,000 mls @ 100 mls/hr 04/14/24 22:00 04/15/24 10:59 D5ns IV Infused .Q10H ISREAL Infusion Piperacillin Sod/Tazobactam 100 mls @ 200 mls/hr 04/14/24 23:30 04/15/24 12:02 Sod 3.375 gm/ Sodium Chloride IV 04/15/24 17:59 Infused Q6H ISREAL Infusion Ibuprofen 400 mg 04/14/24 22:02 Ibuprofen 400 Mg Tablet PO Q4HR PRN Pain 1 to 4 Ondansetron HCl 4 mg 04/14/24 18:27 04/15/24 09:33 Ondansetron 4 Mg/2 Ml Vial IVP 04/15/24 18:28 4 mg ONCE PRN Administration N/V (First Choice) Ondansetron HCl 4 mg 04/14/24 21:56 04/15/24 01:47 Ondansetron Odt 4 Mg Tablet TL 4 mg Q6HR PRN Administration Nausea / Vomiting Oxycodone HCl 5 mg 04/14/24 22:02 04/15/24 00:58 Oxycodone 5 Mg Tablet PO 5 mg Q4HR PRN Administration Pain 5 to 7 Sodium Chloride 10 ml 04/14/24 21:56 Sodium Chloride Flush 0.9% 10 Ml Syringe IVP PRN PRN NEEDED PER PROVIDER ORDERS Sodium Chloride 10 ml 04/15/24 01:00 04/15/24 09:34 Sodium Chloride Flush 0.9% 10 Ml Syringe IVP 10 ml 0100,0900,1700 ISREAL Administration Objective Vital Signs/Intake & Output Reviewed Vital Signs: Yes Vital Signs: Vital Signs x48h Temp Pulse Resp BP Pulse Ox 04/15/24 11:29 36.4 C L 81 18 119/78 98 04/15/24 08:20 36.3 C L 73 16 119/76 99 Intake & Output: Intake & Output 04/13/24 04/14/24 04/15/24 04/16/24 05:59 05:59 05:59 05:59 Intake Total 1690 / 1690 850 / 850 Output Total 150 / 150 Balance 1540 / 1540 850 / 850 Weight (kg) 217 lb 0.016 oz Objective General Appearance: positive No acute distress and Alert Neurologic/Psychiatric: positive Oriented x3, CN's nml (2-12) and Mood/affect nml Lab Results 04/16/24 09:43 04/14/24 15:00 Other Labs: Lab Results x24hrs 04/14/24 04/14/24 Range/Units 15:00 14:30 WBC 13.2 H (4.8-10.8) x10^3/uL RBC 4.81 (4.20-5.40) 10^6/uL Hgb 14.5 (12.0-16.0) g/dL Hct 43.7 (37.0-47.0) % MCV 90.9 (81.0-99.0) fL MCH 30.1 (27.0-31.0) pg MCHC 33.2 (32.0-36.0) g/dL RDW 12.8 (12.0-15.0) % Plt Count 366 (130-450) 10^3/uL MPV 10.0 (7.9-10.8) fL Neut # (Auto) 10.1 H (1.5-6.6) 10^3/uL Lymph # (Auto) 2.1 (1.5-3.5) 10^3/uL Cross # (Auto) 0.7 (0.0-1.0) 10^3/uL Eos # (Auto) 0.2 (0.0-0.7) 10^3/uL Baso # (Auto) 0.1 (0.0-0.1) 10^3/uL Absolute Nucleated RBC 0.00 x10^3/uL Nucleated RBC % 0.0 /100WBC Sodium 137 (135-145) mmol/L Potassium 3.6 (3.5-4.5) mmol/L Chloride 99 L (101-111) mmol/L Carbon Dioxide 29 (21-32) mmol/L Anion Gap 9.0 (6-13) BUN 10 (6-20) mg/dL Creatinine 0.8 (0.6-1.3) mg/dL Estimated GFR (MDRD) 79 L (>89) Glucose 142 H (74-104) mg/dL Calcium 9.7 (8.5-10.3) mg/dL Total Bilirubin 0.7 (0.2-1.0) mg/dL AST 16 (10-42) IU/L ALT 15 (10-60) IU/L Alkaline Phosphatase 104 (42-121) IU/L Total Protein 8.4 (6.4-8.9) g/dL Albumin 4.4 (3.2-5.5) g/dL Globulin 4.0 (2.1-4.2) g/dL Albumin/Globulin Ratio 1.1 (1.0-2.2) Lipase 13 (11-82) U/L Serum HCG, Qual NEGATIVE Urine Color DARK YELLOW Urine Clarity HAZY (CLEAR) Urine pH 6.0 (5.0-7.5) PH Ur Specific [place] 1.025 (1.002-1.030) Urine Protein TRACE (NEGATIVE) mg/dL Urine Glucose (UA) NEGATIVE (NEGATIVE) mg/dL Urine Ketones 15 H (NEGATIVE) mg/dL Urine Occult Blood TRACE-INTA (NEGATIVE) Urine Nitrite NEGATIVE (NEGATIVE) Urine Bilirubin MODERATE H (NEGATIVE) Urine Urobilinogen 4 H (NORMAL) E.U./dL Ur Leukocyte Esterase TRACE H (NEGATIVE) Urine RBC 0-5 (0-5) /HPF Urine WBC 6-10 H (0-5) /HPF Ur Squamous Epith Cells MOD Squamous H (<= Few) Urine Bacteria Rare (None Seen) /HPF Urine Mucus Moderate Strands Ur Microscopic Review INDICATED Urine Culture Comments NOT INDICATED Urine HCG, Qual NEGATIVE Assessment/Plan Problem List (1) H/O ovarian cystectomy: Impression: May have temporary increase in perimenopausal symptoms. Not unusual after ovarian surgery. As she already has hot flashes and irregular bleeding, this will not likely affect her much. Other than this, normal postoperative care, managed by Dr. Echavarria. She is welcome to follow up with me if she desires, but no acute need. Discussed possible torsion risk if left in place and patient is understanding. Also discussed possible recurrence risk. Will sign off at this time unless she has further questions and I am happy to assist. (2) Acute appendicitis: Impression: Appreciate Dr. Biggs managing the surgical aspects. No additional care from me.
--- NOTE | 2024-04-15 13:20 | CONSULTATION NOTE ---
Meds/Allgy Home Medications Ambulatory Orders Medication Instructions Recorded Confirmed duloxetine 30 mg capsule,delayed 30 mg PO DAILY 04/15/24 04/15/24 release (Cymbalta) levocetirizine 5 mg tablet (24HR 5 mg PO DAILY 04/15/24 04/15/24 Allergy Relief) vitamin D3 125 mcg (5,000 1 cap PO DAILY 04/15/24 04/15/24 unit)-vitamin K2 100 mcg capsule Allergies Allergies Allergy/AdvReac Type Severity Reaction Status Date / Time hydrocodone (From Vicodin) Allergy Intermediate Nausea Verified 04/14/24 14:45 latex Allergy Mild Rash Verified 04/14/24 14:45 [facility] Medical History Medical History (Updated 04/14/24 @ 23:55 by Nilton Kahn RN) Hiatal hernia Gall bladder pain Social History Social History (Updated 04/14/24 @ 19:31 by Mary Donovan DNP) Smoking Status: Former smoker If you are a former smoker, when did you quit? (Date/Year): 2009 Number of Years Smoked: 5 How many cigarettes a day do you smoke? (20 cigarettes=1 Pk): 1 Second hand tobacco smoke exposure: Yes Do you dip or chew tobacco?: No Do you vape?: No Patient requests smoking cessation consult: No Initiate information on smoking cessation: No Relationship: Level: Assisted Do you feel safe in your home environment?: Yes Suffered physical, verbal, emotional, or financial abuse?: No POLST Patient has POLST: No POLST Status: Full Code Results Lab Results Lab results reviewed: Yes 04/14/24 15:00 04/14/24 15:00 Other Lab Results: Lab Results x24hrs 04/14/24 04/14/24 Range/Units 15:00 14:30 WBC 13.2 H (4.8-10.8) x10^3/uL RBC 4.81 (4.20-5.40) 10^6/uL Hgb 14.5 (12.0-16.0) g/dL Hct 43.7 (37.0-47.0) % MCV 90.9 (81.0-99.0) fL MCH 30.1 (27.0-31.0) pg MCHC 33.2 (32.0-36.0) g/dL RDW 12.8 (12.0-15.0) % Plt Count 366 (130-450) 10^3/uL MPV 10.0 (7.9-10.8) fL Neut # (Auto) 10.1 H (1.5-6.6) 10^3/uL Lymph # (Auto) 2.1 (1.5-3.5) 10^3/uL [place] # (Auto) 0.7 (0.0-1.0) 10^3/uL Eos # (Auto) 0.2 (0.0-0.7) 10^3/uL Baso # (Auto) 0.1 (0.0-0.1) 10^3/uL Absolute Nucleated RBC 0.00 x10^3/uL Nucleated RBC % 0.0 /100WBC Sodium 137 (135-145) mmol/L Potassium 3.6 (3.5-4.5) mmol/L Chloride 99 L (101-111) mmol/L Carbon Dioxide 29 (21-32) mmol/L Anion Gap 9.0 (6-13) BUN 10 (6-20) mg/dL Creatinine 0.8 (0.6-1.3) mg/dL Estimated GFR (MDRD) 79 L (>89) Glucose 142 H (74-104) mg/dL Calcium 9.7 (8.5-10.3) mg/dL Total Bilirubin 0.7 (0.2-1.0) mg/dL AST 16 (10-42) IU/L ALT 15 (10-60) IU/L Alkaline Phosphatase 104 (42-121) IU/L Total Protein 8.4 (6.4-8.9) g/dL Albumin 4.4 (3.2-5.5) g/dL Globulin 4.0 (2.1-4.2) g/dL Albumin/Globulin Ratio 1.1 (1.0-2.2) Lipase 13 (11-82) U/L Serum HCG, Qual NEGATIVE Urine Color DARK YELLOW Urine Clarity HAZY (CLEAR) Urine pH 6.0 (5.0-7.5) PH Ur Specific [place] 1.025 (1.002-1.030) Urine Protein TRACE (NEGATIVE) mg/dL Urine Glucose (UA) NEGATIVE (NEGATIVE) mg/dL Urine Ketones 15 H (NEGATIVE) mg/dL Urine Occult Blood TRACE-INTA (NEGATIVE) Urine Nitrite NEGATIVE (NEGATIVE) Urine Bilirubin MODERATE H (NEGATIVE) Urine Urobilinogen 4 H (NORMAL) E.U./dL Ur Leukocyte Esterase TRACE H (NEGATIVE) Urine RBC 0-5 (0-5) /HPF Urine WBC 6-10 H (0-5) /HPF Ur Squamous Epith Cells MOD Squamous H (<= Few) Urine Bacteria Rare (None Seen) /HPF Urine Mucus Moderate Strands Ur Microscopic Review INDICATED Urine Culture Comments NOT INDICATED Urine HCG, Qual NEGATIVE Review of Systems Status of ROS: 10 or more systems reviewed and unremarkable except as noted in history and below Exam Exam Vital Signs Temperature 36.4 C L 04/15/24 11:29 Pulse Rate 81 04/15/24 11:29 Respiratory Rate 18 04/15/24 11:29 Blood Pressure 119/78 04/15/24 11: O2 Saturation 98 04/15/24 11:29 If not protocol: Oxygen Flow, liters/minute 2.5 04/15/24 01:20 Constitutional normal general appearance HENMT normocephalic, head/scalp atraumatic, hearing grossly normal bilaterally, external ears normal and oral mucous membranes abnormal (Slightly dry) Eyes conjunctivae normal and no scleral icterus Neck/C-Spine trachea midline Respiratory breath sounds equal bilaterally, normal respiratory effort, clear to auscultation bilaterally, no wheezes, no rales, no retractions and no use of accessory muscles Cardiovascular normal heart rate noted (Slightly tachycardic) Gastrointestinal nondistended, abnormal bowel sounds noted (Decreased) and no masses Maximal tenderness at McBurney's point. Extremities normal to inspection, normal to palpation and no tenderness Neurology no movement abnormality noted, no sensory deficits noted and GCS normal Skin skin color normal, no rash, no lesions, no ecchymosis noted, no wounds, no lacerations, skin turgor normal, no jaundice, no petechiae, no mottling and nails normal Conclusion/Plan Problem List (1) Acute appendicitis: Plan Assessment: Acute appendicitis. The laboratory values, history, radiographic findings, and examination all point towards acute appendicitis. Plan: Laparoscopic appendectomy, possible open appendectomy. The indications, procedure, alternatives including no surgery, possible risks including infection (deep or superficial), bleeding requiring transfusion (with all of its risks), and were fully explained to the patient and her and all questions answered. I also explained the pathophysiology. I explained that following the surgery I did not want her lifting anything over 15 pounds for 6 weeks to allow for optimal healing and to decrease the likelihood that a hernia would occur. All questions were fully answered. Verbal and written consent was obtained. The patient, in preparation for surgery will be nothing by mouth, and has already received 3.375 g of Zosyn. I asked her to contact me with any surgical questions and her concerns and she stated that she would. I asked her to let me know if there is any way we can make her stay at [facility] more comfortable and she stated that she would let me know. The plan is to do this operation as an outpatient procedure and to discharge her home following the procedure. Important note is that her mother is due to have a mastectomy performed by Dr. Mandy Marie this Friday and she was supposed to be the ups driver. I explained that this operation would likely preclude her from being the ups driver. 45 minutes of [id number] time spent with the patient, over 80% in discussion and coordination of her care Lab Results Lab results reviewed: Yes 04/14/24 15:00 04/14/24 15:00
[2024-04-15] MEDS: IBUPROFEN 400 MG TABLET PO PRN (20:50)
[2024-04-16] MEDS: DULoxetine 30 MG CAPSULE PO SCH (08:17)
[2024-04-16 08:18] VITALS: O2SAT 98
[2024-04-16] MEDS: CETIRIZINE 10 MG TABLET PO SCH (08:18)
[2024-04-16] MEDS ORDERED: VITAMIN D3 VITAMIN K2 PO SCH (09:00)
[2024-04-16] MEDS ORDERED: [UNRECOGNIZED DRUG - REMARK] PO SCH (09:00)
[2024-04-16 10:05] LABS: BASOPHILS # (AUTO) 0.1 10^3/uL (0.0-0.1); BASOPHILS % (AUTO) 0.7 %; EOSINOPHILS # (AUTO) 0.3 10^3/uL (0.0-0.7); EOSINOPHILS % (AUTO) 4.2 %; HCT - HEMATOCRIT 37.4 % (37.0-47.0); HGB - HEMOGLOBIN 11.8 g/dL (12.0-16.0); LYMPHOCYTES # (AUTO) 1.4 10^3/uL (1.5-3.5); LYMPHOCYTES % (AUTO) 19.6 %; MEAN CORPUSCULAR HEMOGLOBIN 29.6 pg (27.0-31.0); MEAN CORPUSCULAR HGB CONC 31.6 g/dL (32.0-36.0); MEAN PLATELET VOLUME 9.9 fL (7.9-10.8); MONOCYTES # (AUTO) 0.5 10^3/uL (0.0-1.0); MONOCYTES % (AUTO) 6.5 %; NEUTROPHILS # (AUTO) 4.8 10^3/uL (1.5-6.6); NEUTROPHILS % (AUTO) 68.6 %; PLT - PLATELET COUNT 308 10^3/uL (130-450); RED BLOOD COUNT 3.98 10^6/uL (4.20-5.40)
--- NOTE | 2024-04-16 11:00 | Discharge Summary ---
"Discharge Summary Admit Date: 04/14/24 Discharge Date: 04/16/24 Discharging Provider: [facility] Code Status: Attempt Resuscitation DIAGNOSES Admission Diagnoses: Acute appendicitis Discharge Diagnoses with Status of Each Condition: Acute appendicitisresolved Right ovarian cystresolved HPI History of Present Illness: Patient presented 2 days ago with a multiday history of abdominal pain that on radiographic and laboratory studies was highly suspicious for acute appendicitis. The patient was taken to the operating room that evening by me where acute perforated appendicitis was noted and the appendix was removed. Also noted was a large right ovarian cyst and I consulted Dr. Gasper Bhatia intraoperatively and he was kind enough to come in and remove the cyst. The patient has done well postoperatively with additional antibiotics and a normalization of her white blood cell count. She is being discharged home today on a general diet. The pain is controlled. She has no indication of infection. I removed the drain. CONSULTS | PROCEDURES Consultations: MD Gasper Gloria MD Procedures: Laparoscopic appendectomy, laparoscopic right ovarian cystectomy HOSPITAL COURSE Hospital Course: Uncomplicated see above ALLERGIES Allergies Allergy/AdvReac Type Severity Reaction Status Date / Time hydrocodone (From Vicodin) Allergy Intermediate Nausea Verified 04/14/24 14:45 latex Allergy Mild Rash Verified 04/14/24 14:45 MEDICATIONS Ambulatory Orders Medication Instructions Recorded Confirmed duloxetine 30 mg capsule,delayed 30 mg PO DAILY 04/15/24 04/15/24 release (Cymbalta) levocetirizine 5 mg tablet (24HR 5 mg PO DAILY 04/15/24 04/15/24 Allergy Relief) vitamin D3 125 mcg (5,000 1 cap PO DAILY 04/15/24 04/15/24 unit)-vitamin K2 100 mcg capsule PHYSICAL EXAM AT DISCHARGE General Appearance: positive No acute distress and Alert Eyes Bilateral: positive No lid inflammation, Conjunctivae nml and No scleral icterus ENT: positive No signs of dehydration Neck: positive Trachea midline Respiratory: positive Chest non-tender, No respiratory distress and Breath sounds nml Cardiovascular: positive Regular rate & rhythm and No murmur Abdomen: positive Nml bowel sounds, No distention and Tenderness (Incisional); negative Guarding or Rebound Skin: positive Color nml Extremities: positive Non-tender and Nml appearance; negative Calf tenderness or Marco's sign/cords Neurologic/Psychiatric: positive Oriented x3, Motor nml, Sensation nml and Mood/affect nml LABS 04/16/24 09:43 04/14/24 15:00 FOLLOW UP Follow Up: [facility] this coming Friday Sriram on an as-needed basis TIME SPENT Time Spent in Discharge (Minutes): 45 Discharge Plan Discharge Patient Disposition: 01 TRA, Self Care Condition: Stable Medically Cleared Date:: 04/16/24 Prescriptions: Continued Cymbalta 30 mg capsule,delayed release(DR/EC) 30 mg PO DAILY vitamin D3-vitamin K2 125 mcg (5,000 unit)-100 mcg capsule 1 cap PO DAILY 24HR Allergy Relief 5 mg tablet 5 mg PO DAILY Activity Restrictions: No Restrictions Activity Restrictions/Additional Instructions: DIET - You may resume your normal diet if there is no nausea or vomiting. You may want to avoid spicy, greasy, or heavy foods today to minimize gas. - If nausea or vomiting occurs, don't eat or drink anything for one hour. Then start drinking small amounts of clear liquids. Later, add crackers, gradually building up to your usual diet. ACTIVITY INSTRUCTIONS * May walk, run, use stairs * No lifting >15lb for 6 wks * May shower, hot tub and swim starting tomorrow. Call with surgical questions or concerns or if instructions are unclear. Return to clinic can be in 7-10 days as necessary. DRESSING CARE * CARE INSTRUCTIONS * Ice to wound for 15min [7] times per day. * Use ice for [7] days. ADDITIONAL DISCHARGE INSTRUCTIONS * Call with surgical questions or concerns or if instructions are unclear. Return to clinic can be in 7-10 days as necessary. ANESTHESIA PRECAUTIONS Anesthesia and medications given during surgery remain in your body up to 24 hours. This may slow reaction time and/or decrease coordination. FOR THE NEXT 24 HOURS: - Have a responsible person with you - Avoid any activity that requires you to be alert and coordinated - DO NOT DRIVE a motor vehicle for 24 hours or as long as you are taking opoid pain medication - Do not drink alcoholic beverages - Do not smoke unattended Patient Date Escort Date RN Date Diet: Regular Health Concerns: None. Take ibuprofen of naproxen for pain. I did not prescribe [place] due to allergies. Print Language: Ethiopian Patient Instructions: Surgery Anesthesia After Stand Alone Forms: PCP List Follow-up Care: Tray Echavarria MD [Provider Admit Priv/Credential] - 04/21/24 Gasper Bhatia MD [Provider Admit Priv/Credential] - (As needed.)"
== END 2024-04-16 12:15 | disposition home or self-care (01) | DRG 399 ==
LOC: ED 13:56 → SDS 19:20 → MS2 21:57
PROVIDERS: ADMIT Surgery; ATTEND Surgery
DX: Z87.891 Personal history of nicotine dependence; N83.291 Other ovarian cyst, right side; K35.33 Acute appendicitis with perforation, localized peritonitis, and gangrene, with abscess